=== PATIENT | male | born 1955 | race African-American/Black ===

== ENCOUNTER 2024-06-25 11:31 | Emergency (ER) | payer OTHER ==
[2024-06-25] MEDS ORDERED: HYDROCODONE/APAP 5/325 MG TAB ONE (12:19)
[2024-06-25] MEDS ORDERED: KETOROLAC 30 MG/ML INJ ONE (12:19)
[2024-06-25 12:23] LABS: Absolute Basophils 0.1 K/uL (0-0.5); Absolute Eosinophils 0.1 K/uL (0-0.5); Absolute Lymphocytes (CBC) 1.7 K/uL (0.7-4.9); Absolute Monocytes 0.6 K/uL (0.1-1.3); Basophils % 0.8 % (0-1.3); Eosinophils % 1.8 % (0-4.4); Hematocrit 41.6 % (39.6-49.0); Hemoglobin 14.3 g/dL (13.6-17.9); MCH 30.6 pg (27.0-35.0); MCHC 34.3 g/dL (32.0-36.0); MCV 89.1 fL (80-100); MPV 6.4 fL (7.6-11.3); Monocytes % 8.3 % (3.3-12.3); Neutrophils % 66.1 % (41.7-73.7); Platelets 262 thou/uL (152-406); RBC Red Blood Cell Count 4.66 M/uL (4.33-5.43); Red Cell Distribution Width 14.5 % (12.1-15.2)
[2024-06-25 12:35] LABS: PT Prothrombin Time 12.3 SECONDS (10-13.0); PTT, Activated Partial Thromb 31.8 SECONDS (27.2-37.4); Protime INR 1.08
[2024-06-25 12:43] LABS: Albumin 3.2 g/dL (3.4-5.0); Albumin/Globulin Ratio 0.8 (1.1-1.8); Anion Gap 9.7 mEq/L (5.0-15.0); Bilirubin Total 0.6 mg/dL (0.2-1.0); Globulin 4.1 g/dL (2.3-3.5); Potassium 3.7 mEq/L (3.5-5.1); Protein, Total 7.3 g/dL (6.4-8.2)
--- NOTE | 2024-06-25 13:26 | RAD REPORT ---
EXAM: CT brain without contrast HISTORY: TRAUMA COMPARISON: None TECHNIQUE: Multiple contiguous axial images were obtained and a CT of the brain without contrast. Sag ittal and coronal reformats were performed. FINDINGS: No evidence of hydrocephalus, intracranial hemorrhage, or extra-axial fluid collection. The brain is normal in morphology. The calvarium is intact. The visualized paranasal sinuses and mastoid air cells are essentially clear . IMPRESSION: No evidence of acute intracranial abnormality. EXAM: CT of the cervical spine without contrast HISTORY: TRAUMA COMPARISON: None TECHNIQUE: Multiple contiguous axial images were obtained in a CT of the cervical spine without contr ast. Sagittal and coronal reformats were performed. FINDINGS: The vertebral bodies demonstrate normal height and alignment. No evidence of acute fracture or subluxation.. Mild multilevel degenerative changes are present, contributing to mild to moderate degrees of neural foraminal narrowing most pronounced at C3-4 bilaterally. No prevertebral soft tissue swelling is seen. The posterior facets are well aligned. Normal alignment of the skull base with the cervical spine is seen. The lung apices are unremarkable. IMPRESSION: No evidence of acute osseous abnormality of the cervical spine. Degenerative changes as above.
--- NOTE | 2024-06-25 13:39 | RAD REPORT ---
EXAM: CT CHEST, ABDOMEN AND PELVIS WITHOUT CONTRAST CLINICAL INDICATION: Male, 68 years old. [facility] MAIN FALL TECHNIQUE: CT chest, abdomen and pelvis was performed, without IV contrast, as per department protoco l. Axial, sagittal and coronal reconstructions were obtained. One or more of the following dose reduction techniques were used: Automated exposure control, adjustment of the mA and/or kV according to the patient size, and/or iterative reconstruction. Unless otherwise specified, incidental findings do not require dedicated imaging follow-up. COMPARISON: No prior exam. FINDINGS: The lack of intravenous contrast limits the sensitivity of this exam for evaluation of solid visceral organs, vascular structures, and retroperitoneum. Chest: LOWER NECK/CHEST WALL: Visualized thyroid gland and soft tissues are normal. LUNGS AND AIRWAYS: Airways are clear. Upper segment right lower lobe groundglass and tree-in-bud opac ities, nonspecific. Platelike atelectatic changes in the right middle lobe and the dependent right more than left lower lobes. No nodules. PLEURA: No pleural effusion. No pneumothorax. Hemidiaphragms are normally positioned. MEDIASTINUM AND LYMPH NODES: No mediastinal mass or fluid collection. Normal size mediastinal, hilar, and axillary lymph nodes. THORACIC AORTA: Normal caliber and configuration. PULMONARY ARTERIES: Normal caliber. HEART: Unremarkable. Abdomen/Pelvis LIVER: Normal in size and contour. No focal lesion. GALLBLADDER/BILE DUCTS: No biliary ductal dilatation. PANCREAS: No mass, ductal dilation, or leeanne-pancreatic fluid. SPLEEN: Normal size. No focal lesion. ADRENALS: Normal; no mass. KIDNEYS AND URETERS: Normal size and contour. No hydronephrosis. GASTROINTESTINAL TRACT: Stomach is non-dilated. Small bowel has normal course and caliber. No colonic wall thickening or pericolonic inflammatory changes. PERITONEUM: No free fluid. LYMPH NODES: No lymphadenopathy. ABDOMINAL AORTA AND OTHER VESSELS: Normal caliber aorta and IVC. URINARY BLADDER: Normal contour. REPRODUCTIVE ORGANS: No pathologic process. MUSCULOSKELETAL: No acute or suspicious osseous abnormality. ADDITIONAL FINDINGS: None IMPRESSION: Groundglass and tree-in-bud opacities in the upper segment right lower lobe, nonspecific, but may rel ate to infection such as early pneumonia, atelectasis, less likely sequelae of aspiration. No acute or significant abnormalities in the abdomen, or pelvis.
--- NOTE | 2024-06-25 13:45 | EDPHYS ---
Physician Documentation [facility] Name: Alex Pacheco Age: 68 yrs Sex: Male : 1955 Arrival Date: 06/25/2024 Time: 11:31 Bed DX3 Private MD: ED Physician Annalisa Herbert HPI: 06/25 13:15 This 68 yrs old Black Male presents to ER via EMS with complaints of Fall Injury. gb1 13:15 68-year-old weed Esteban was weed whacking on the side of the road and fell into a gb1 ditch. Patient has pain on the left side of his head he. No LOC he also has midline neck pain as well. He is able to move all extremities. He denies any chest pain or shortness of breath.. Historical: - Allergies: 11:44 No Known Allergies; me1 - Home Meds: 11:44 None [Active]; me1 - PMHx: 11:44 None; me1 - PSHx: 11:44 Operative procedure on knee; me1 - Immunization history:: Adult Immunizations up to date. - Infectious Disease History:: Denies. - Social history:: Smoking status: Patient denies any tobacco usage or history of. Exam: 13:15 Constitutional: This is a well developed, well nourished patient who is awake, alert, gb1 and in no acute distress. Head/Face: Normocephalic, atraumatic. Eyes: Pupils equal round and reactive to light, extra-ocular motions intact. Lids and lashes normal. Conjunctiva and sclera are non-icteric and not injected. Cornea within normal limits. Periorbital areas with no swelling, redness, or edema. ENT: Nares patent. No nasal discharge, no septal abnormalities noted. Tympanic membranes are normal and external auditory canals are clear. Oropharynx with no redness, swelling, or masses, exudates, or evidence of obstruction, uvula midline. Mucous membranes moist. Neck: Trachea midline, no thyromegaly or masses palpated, and no cervical lymphadenopathy. Supple, full range of motion without nuchal rigidity, or vertebral point tenderness. No Meningismus. Chest/axilla: Normal chest wall appearance and motion. Nontender with no deformity. No lesions are appreciated. Cardiovascular: Regular rate and rhythm with a normal S1 and S2. No gallops, murmurs, or rubs. Normal PMI, no JVD. No pulse deficits. Respiratory: Lungs have equal breath sounds bilaterally, clear to auscultation and percussion. No rales, rhonchi or wheezes noted. No increased work of breathing, no retractions or nasal flaring. Abdomen/GI: Soft, non-tender, with normal bowel sounds. No distension or tympany. No guarding or rebound. No evidence of tenderness throughout. Back: Left-sided paraspinal tenderness in the thoracic and lumbar spine. No midline tenderness or overt signs of radiculopathy on exam full range of motion. Skin: Warm, dry with normal turgor. Normal color with no rashes, no lesions, and no evidence of cellulitis. MS/ Extremity: Pulses equal, no cyanosis. Neurovascular intact. Full, normal range of motion. Neuro: Awake and alert, GCS 15, oriented to person, place, time, and situation. Cranial nerves II-XII grossly intact. Motor strength 5/5 in all extremities. Sensory grossly intact. Cerebellar exam normal. Normal gait. Vital Signs: 11:38 BP 115 / 93; Pulse 58; Resp 16; Temp 98.3; Pulse Ox 99% ; Weight 86.18 kg; Height 5 ft. me1 7 in. ; Pain 9/10; 12:00 BP 109 / 93; Pulse 57; Resp 16; Pulse Ox 94% ; me1 13:00 BP 120 / 93; Pulse 58; Resp 16; Pulse Ox 99% ; me1 14:00 BP 130 / 77; Pulse 57; Resp 15; Temp 98.2; Pulse Ox 97% ; me1 11:38 Body Mass Index 29.76 (86.18 kg, 170.18 cm) me1 11:38 Pain Scale: Adult me1 MDM: 11:45 Medical Screening Exam initiated ms3 13:49 Data reviewed: vital signs, nurses notes, lab test result(s), radiologic studies, CT [facility] scan. 13:49 ED course: 68-year-old Mr. Pramod Torres came for shortness of breath. He is at [facility] dialysis patient ESRD who dialyzes Tuesday and Tuesday. He did go and have dialysis on Tuesday. He is a heavy smoker with a history of chronic ischemic heart disease, diabetes, anemia, cirrhosis. Patient denies any chest pain or fever he denies any cough.. ED course: 68-year-old male status post a fall has negative trauma gram. CT head and C-spine are normal no fractures no intracranial acute findings. His lumbar spine shows no fracture or any signs of compression fracture. Patient is awake alert and I recommend if back pain is lasting longer than 2 weeks that he obtain an MRI of his lumbar spine. Patient is clinically improved after NSAID and oral opiate I will recommend NSAIDs for discharge and given explicit return precautions which he is compliant with prior to discharge home today.. 06/25 11:47 Order name: CBC with Diff; Complete Time: 13:08 [facility] 06/25 11:47 Order name: Type And Screen; Complete Time: 13:41 [facility] 06/25 11:47 Order name: CMP; Complete Time: 13: [facility] 06/25 11:48 Order name: PT-INR; Complete Time: 13: [facility] 06/25 11:48 Order name: Ptt, Activated; Complete Time: 13:08 [facility] 06/25 13:10 Order name: ABO/RH no charge; Complete Time: 13:41 [facility] 06/25 11:52 Order name: Head C Spine Mpr Wo Con; Complete Time: 13:41 [facility] 06/25 11:53 Order name: Chest Abd Pelvis Wo Con; Complete Time: 13:41 [facility] 06/25 11:47 Order name: Labs collected and sent; Complete Time: 12:30 gb1 Administered Medications: 12:29 Drug: Ketorolac IVP 30 mg IVP once Route: IVP; Site: right wrist; me1 14:00 Follow up: Response: No adverse reaction; Pain is decreased me1 12:29 Drug: HYDROcodone-acetaminophen PO 5 mg-325 mg 1 tabs PO once Route: PO; me1 14:00 Follow up: Response: No adverse reaction; Pain is decreased me1 Disposition Summary: 06/25/24 13:45 Discharge Ordered Notes: Location: Home gb1 Condition: Stable gb1 Diagnosis - Fall on same level from slipping, tripping and stumbling without subsequent gb1 striking against object - Sprain of ligaments of lumbar spine gb1 Followup: gb1 - With: Private Physician - When: - Reason: Further diagnostic work-up Discharge Instructions: - Discharge Summary Sheet gb1 - Lumbar Sprain gb1 Forms: - Medication Reconciliation Form gb1 - Antibiotic Education gb1 - Prescription Opioid Use gb1 - Patient Portal Instructions gb1 - Leadership Thank You Letter gb1 Signatures: Dispatcher [employer] EDMS Chucky Hartley DO DO ms3 Yudy Zheng, RN RN me1 Annalisa Herbert MD MD gb1 Corrections: (The following items were deleted from the chart) 11:48 11:48 Head C Spine Cap Wo Con+CT.RAD.BRZ ordered. EDMS EDMS
--- NOTE | 2024-06-25 13:45 | ER ---
Nurse's Notes [facility] Name: Alex Pacheco Age: 68 yrs Sex: Male : 1955 Arrival Date: 06/25/2024 Time: 11:31 Bed DX3 Private MD: Diagnosis: Fall on same level from slipping, tripping and stumbling without subsequent striking against object;Sprain of ligaments of lumbar spine Presentation: 06/25 11:38 Chief complaint: EMS states: toned out slip and fall. 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 Did hit his head, No LOC, No blood thinners. c/o pain and numbness down left lower back and left hip/pelvis pain as well as L rib pain with inspiration. 18g R Wrist, given fentanyl 50 mcg IV and zofran 4 mg IV by EMS. Coronavirus screen: Vaccine status: Patient reports receiving the 2nd dose of the covid vaccine. Ebola Screen: No symptoms or risks identified at this time. Initial Sepsis Screen: Does the patient meet any 2 criteria? No. Patient's initial sepsis screen is negative. Does the patient have a suspected source of infection? No. Patient's initial sepsis screen is negative. Risk Assessment: Do you want to hurt yourself or someone else? Patient reports no desire to harm self or others. Onset of symptoms was June 25, 2024. 11:38 Method Of Arrival: EMS: [place] [id number] 11:38 Acuity: LIBERTAD 3 me1 Triage Assessment: 11:44 General: Appears uncomfortable, well developed, well nourished, Behavior is calm, me1 cooperative, appropriate for age. Pain: Complains of pain in back of neck and left low back Pain does not radiate. Pain currently is 9 out of 10 on a pain scale. Quality of pain is described as aching, Pain began suddenly, Is continuous. Pain: Complains of pain in back of neck and left low back and left anterior ribs. EENT: No signs and/or symptoms were reported regarding the EENT system. Neuro: Level of Consciousness is awake, alert, obeys commands, Oriented to person, place, time, situation, Appropriate for age. Cardiovascular: Patient's skin is warm and dry. Respiratory: Airway is patent Respiratory effort is even, unlabored, Respiratory pattern is regular, symmetrical. GI: No signs and/or symptoms were reported involving the gastrointestinal system. : No signs and/or symptoms were reported regarding the genitourinary system. Derm: Skin is healthy with good turgor, Skin is pink, warm \T\ dry. Musculoskeletal: Reports pain in back of neck and left low back and left anterior ribs. Injury Description: slip and fall. Historical: - Allergies: 11:44 No Known Allergies; me1 - Home Meds: 11:44 None [Active]; me1 - PMHx: :44 None; me1 - PSHx: :44 Operative procedure on knee; me1 - Immunization history:: Adult Immunizations up to date. - Infectious Disease History:: Denies. - Social history:: Smoking status: Patient denies any tobacco usage or history of. Screenin:47 [facility] ED Fall Risk Assessment (Adult) History of falling in the last 3 months, me1 including since admission Yes- single mechanical fall (1 pt) Confusion or Disorientation No (0 pts) Intoxicated or Sedated No (0 pts) Impaired Gait No (0 pts) Mobility Assist Device Used No (0 pt) Altered Elimination No (0 pt) Score/Fall Risk Level 0 - 2 = Low Risk. Abuse screen: Denies threats or abuse. Nutritional screening: No deficits noted. Tuberculosis screening: No symptoms or risk factors identified. Assessment: 11:47 General: See triage assessment. me1 Vital Signs: 11:38 BP 115 / 93; Pulse 58; Resp 16; Temp 98.3; Pulse Ox 99% ; Weight 86.18 kg; Height 5 ft. me1 7 in. ; Pain 9/10; 12:00 BP 109 / 93; Pulse 57; Resp 16; Pulse Ox 94% ; me1 13:00 BP 120 / 93; Pulse 58; Resp 16; Pulse Ox 99% ; me1 14:00 BP 130 / 77; Pulse 57; Resp 15; Temp 98.2; Pulse Ox 97% ; me1 11:38 Body Mass Index 29.76 (86.18 kg, 170.18 cm) me1 11:38 Pain Scale: Adult hi1 ED Course: 11:38 Patient arrived in ED. me1 11:44 Triage completed. me1 11:44 Arm band placed on Patient placed in an exam room. me1 11:45 Chucky Hartley DO is Attending Physician. ms3 11:45 Annalisa Herbert MD is Attending Physician. ms3 11:47 Patient has correct armband on for positive identification. Bed in low position. Call me1 light in reach. Side rails up X2. Provided Education on: POC. Verbalized understanding.. Client placed on continuous cardiac and pulse oximetry monitoring. NIBP monitoring applied. Pulse ox on. NIBP on. 11:47 No provider procedures requiring assistance completed. Maintain EMS IV. Dressing me1 intact. Good blood return noted. Site clean \T\ dry. Gauge \T\ site: 18g R wrist. Flushed with 10 mL NS. 12:03 Head C Spine Mpr Wo Con In Process Unspecified. EDMS 12:03 Chest Abd Pelvis Wo Con In Process Unspecified. EDMS 12:24 Yudy Zheng, MAURICE is Primary Nurse. me1 12:30 Initial lab(s) drawn, by hi, sent to lab. T\T\S collected, blood band applied to patient. me1 14:35 IV discontinued, intact, bleeding controlled, No redness/swelling at site. Pressure me1 dressing applied. Administered Medications: 12:29 Drug: Ketorolac IVP 30 mg IVP once Route: IVP; Site: right wrist; me1 14:00 Follow up: Response: No adverse reaction; Pain is decreased me1 12:29 Drug: HYDROcodone-acetaminophen PO 5 mg-325 mg 1 tabs PO once Route: PO; me1 14:00 Follow up: Response: No adverse reaction; Pain is decreased me1 Medication: 11:47 VIS not applicable for this client. me1 Outcome: 13:45 Discharge ordered by . gb1 14:35 Discharged to home via wheelchair, me1 14:35 Condition: stable 14:35 Discharge instructions given to patient, Instructed on discharge instructions, follow up and referral plans. Demonstrated understanding of instructions, follow-up care, 16:25 Patient left the ED. me1 Signatures: Dispatcher [employer] EDMS Chucky Hartley DO DO ms3 Yudy Zheng RN RN me1 Annalisa Herbert MD MD [facility]
[2024-06-25 16:33] VITALS: BP 130/77; TEMP 98.2; O2SAT 97
== END 2024-06-25 16:25 | disposition home or self-care (01) ==
LOC: ER 11:31
DX: S33.5XXA Sprain of ligaments of lumbar spine, initial encounter (principal); W01.0XXA Fall on same level from slipping, tripping and stumbling without subsequent striking against object, initial encounter; Y99.0 Civilian activity done for income or pay
CPT/HCPCS: 36415; 70450; 71250; 72125; 74176; 80053; 85025; 85610; 85730; 86850; 86900; 86901; 96374; 99284